=== PATIENT | male | born 1985 ===

== ENCOUNTER → 2017-03-19 | Outpatient (CLI) | payer OTHER | END | disposition home or self-care (01) | LOC: SONOGRAMA 12:03 | DX: M25.511 Pain in right shoulder (principal) ==

== ENCOUNTER 2017-11-15 08:06 | Outpatient (CLI) | payer OTHER | END 2017-11-15 11:43 | disposition home or self-care (01) | LOC: MRI 08:06 | DX: M54.2 Cervicalgia (principal); M54.89 Other dorsalgia; M54.12 Radiculopathy, cervical region; M19.90 Unspecified osteoarthritis, unspecified site | CPT/HCPCS: 72141 ==